=== PATIENT | male | born 1965 | race Caucasian/White ===

== ENCOUNTER → 2022-03-25 | Outpatient (CLI) | payer BC ==
[~2022-03-25] MED LIST: CRESTOR10 MG PO; LOPRESSOR 25 MG25 MG PO
== END ==
LOC: MRI 08:29
DX: K83.1 Obstruction of bile duct (principal); K83.8 Other specified diseases of biliary tract
CPT/HCPCS: 36415; 74170; 82565; 84520; Q9967

== ENCOUNTER → 2022-03-30 | Day surgery (SDC) | payer BC ==
[~2022-03-30] VITALS: Ht 182.9 cm; Wt 78.5 kg
== END | disposition home or self-care (01) ==
LOC: OR 07:06
DX: K83.1 Obstruction of bile duct (principal); K83.8 Other specified diseases of biliary tract; K86.89 Other specified diseases of pancreas; I10 Essential (primary) hypertension; Z79.899 Other long term (current) drug therapy
CPT/HCPCS: 76000; 80076; 82150; 83690; 85610; 85730; C1725; C1769; C2617; J0295; J2704; J3010; J7040; J7120; Q9967

== ENCOUNTER → 2022-07-15 | Outpatient (CLI) | payer BC ==
[2022-07-15 11:45] LABS: BUN/CREATININE RATIO 15 (0-10)
== END ==
LOC: LAB 10:42
DX: C24.1 Malignant neoplasm of ampulla of Vater (principal)
CPT/HCPCS: 36415; 80053